=== PATIENT | female | born 1960 | race African-American/Black ===

== ENCOUNTER 2024-01-27 15:15 | Inpatient (IN) | payer MEDICARE, MEDICAID ==
[~2024-01-27] VITALS: Ht 175.3 cm; Wt 83.7 kg
[2024-01-27] MEDS: VANCOMYCIN 1G PREMIX 200 ML IV ONE (15:30)
[2024-01-27] MEDS: DEXTROSE 50% WATER 50ML SYRINGE IV ONE (15:43)
[2024-01-27] MEDS: LEVETIRACETAM 1000MG PREMIX 100 ML IV ONE (15:45)
[2024-01-27] MEDS: PIPERACILLIN/TAZO 3.375G/50ML 50 ML IV ONE (15:46)
[2024-01-27] MEDS: SODIUM CHLORIDE 0.9% 500 ML IV ONE (15:48)
[2024-01-27 16:39] LABS: BASOPHILS % 1.2 % (0.0-2.0); DIFFERENTIAL COMMENT 0; EOSINOPHILS % 0.2 % (0.0-5.0); HEMATOCRIT. 36.9 % (36.0-48.0); HEMOGLOBIN. 11.7 g/dL (12.0-16.0); LYMPHOCYTES % 14.4 % (20.0-50.0); MEAN CORPUSCULAR HEMOGLOBIN 24.3 pg (28.0-32.0); MEAN CORPUSCULAR HGB CONC 31.7 g/dL (31.0-37.0); MEAN CORPUSCULAR VOLUME 76.7 fL (81.0-99.0); MEAN PLATELET VOLUME 8.1 fl (7.4-10.4); MONOCYTES % 8.8 % (2.0-8.0); NEUTROPHILS % 75.4 % (40.0-76.0); PLATELET 248 x1000/uL (130-400); RED BLOOD CELL COUNT 4.81 mill/uL (4.2-5.4); RED CELL DISTRIBUTION WIDTH 17.9 % (11.6-14.6); WHITE BLOOD COUNT 6.5 x1000/uL (4.5-11.0)
[2024-01-27 16:49] LABS: CHLORIDE 105 mEq/L (98-107); POTASSIUM 4.4 mEq/L (3.5-5.1); SODIUM 138 mEq/L (136-145)
[2024-01-27 16:50] LABS: CALCIUM 9.2 mg/dL (8.7-10.4); CARBON DIOXIDE 18 mEq/L (21-32)
[2024-01-27 16:51] LABS: INR 1.2
[2024-01-27 16:55] LABS: CREATININE 1.6 mg/dL (0.6-1.0); GLUCOSE 74 mg/dL (70-105); TROPONIN I HIGH SENSITIVITY 34 ng/L (3.0-34); UREA NITROGEN BLOOD 20 mg/dL (9-23)
[2024-01-27 16:57] LABS: ACETAMINOPHEN < 2 ug/mL (10-30); ALANINE AMINOTRANSFERASE 19 IU/L (10-49); ALBUMIN 3.6 g/dL (3.2-4.8); AMMONIA 51 uMol/L (<32); ASPARTATE AMINOTRANSFERASE 31 IU/L (<34); BILIRUBIN DIRECT 1.6 mg/dL (<=3.0); BILIRUBIN TOTAL 2.7 mg/dL (0.1-1.0); ETHANOL BLOOD < 10 mg/dL (<10); PROTEIN TOTAL 6.8 g/dL (6.0-8.3)
[2024-01-27 16:59] LABS: LACTIC ACID 6.1 mmol/L (0.4-2.0)
[2024-01-27] MEDS ORDERED: LACTULOSE 20G/30ML UDC PO ONE ×2 (17:00)
[2024-01-27] MEDS: LACTULOSE 20G/30ML UDC PO NR (21:00)
[2024-01-27 22:16] VITALS: BP 130/99; PULSE 109; RESP 21; TEMP 37.28076; TEMP 37.3076; O2SAT 97
[2024-01-27] MEDS ORDERED: DEXTROSE 50% WATER 50ML SYRINGE IV PRN (23:45)
[2024-01-28] VITALS: BP 120/85; PULSE 101; RESP 16; TEMP 37.2252; O2SAT 98
[2024-01-28] MEDS ORDERED: FURO40TA5 PO (01:13)
[2024-01-28] MEDS ORDERED: GLIP10TA17 PO (01:13)
[2024-01-28] MEDS ORDERED: CARV3.1242 PO (01:13)
[2024-01-28] MEDS ORDERED: HYDR25TA78 PO (01:13)
[2024-01-28] MEDS ORDERED: METF-416 PO (01:13)
[2024-01-28] MEDS: LORAZEPAM 2MG/ML INJ IV PRN (03:57)
[2024-01-28 04:11] VITALS: BP 131/99; PULSE 113; RESP 22; TEMP 37.05852; O2SAT 98
[2024-01-28 04:33] LABS: CLARITY URINE CLOUDY (CLEAR); COLOR URINE YELLOW (YELLOW); GLUCOSE URINE NEGATIVE (NEGATIVE); KETONES URINE NEGATIVE (NEGATIVE); LEUKOCYTE ESTERASE URINE NEGATIVE (NEGATIVE); NITRITE URINE NEGATIVE (NEGATIVE); OCCULT BLOOD URINE 3+ (NEGATIVE); PH URINE 5.5 (4.5-8.0); PROTEIN URINE 1+ (NEGATIVE); SPECIFIC GRAVITY URINE 1.012 (1.005-1.030)
[2024-01-28 04:45] LABS: *AMPHETAMINES SCREEN URINE NEGATIVE (NEGATIVE); *BARBITURATES SCREEN URINE NEGATIVE (NEGATIVE); *BENZODIAZEPINES SCREEN URINE PRESUMPTIVE POSITIVE (NEGATIVE); *COCAINE SCREEN URINE PRESUMPTIVE POSITIVE (NEGATIVE); CANNABINOID URINE SCREEN PRESUMPTIVE POSITIVE (NEGATIVE); ECSTASY MDMA SCREEN URINE NEGATIVE (NEGATIVE); METHADONE URINE SCREEN NEGATIVE (NEGATIVE); OPIATES URINE SCREEN NEGATIVE (NEGATIVE); PHENCYCLIDINE URINE SCREEN NEGATIVE (NEGATIVE); SQUAMOUS EPITHELIAL CELL URINE FEW /lpf (RARE/1+); WBC URINE 0-2 /hpf (0-2)
[2024-01-28 04:46] LABS: BACTERIA URINE NONE SEEN; RBC URINE 50-100 /hpf (0-2)
[2024-01-28] MEDS: HYDRALAZINE HCL 25MG TABLET PO SCH (06:00)
[2024-01-28] MEDS: BLOOD SUGAR DIAGNOSTIC STRIP TEST SCH (06:12)
[2024-01-28] MEDS: INSULIN LISPRO 100 UNITS/ML SUBCUT SCH (06:14)
[2024-01-28 08:00] VITALS: BP 135/98; PULSE 119; RESP 26; TEMP 36.50292; O2SAT 96
[2024-01-28 08:22] LABS: BASOPHILS % 0.6 % (0.0-2.0); DIFFERENTIAL COMMENT 0; EOSINOPHILS % 0.3 % (0.0-5.0); HEMATOCRIT. 35.1 % (36.0-48.0); HEMOGLOBIN. 11.3 g/dL (12.0-16.0); LYMPHOCYTES % 35.3 % (20.0-50.0); MEAN CORPUSCULAR HEMOGLOBIN 24.5 pg (28.0-32.0); MEAN CORPUSCULAR HGB CONC 32.2 g/dL (31.0-37.0); MEAN CORPUSCULAR VOLUME 76.1 fL (81.0-99.0); MEAN PLATELET VOLUME 7.6 fl (7.4-10.4); NEUTROPHILS % 53.8 % (40.0-76.0); PLATELET 232 x1000/uL (130-400); RED BLOOD CELL COUNT 4.61 mill/uL (4.2-5.4); RED CELL DISTRIBUTION WIDTH 18.2 % (11.6-14.6)
[2024-01-28 08:23] LABS: CREATININE 1.4 mg/dL (0.6-1.0)
[2024-01-28] MEDS ORDERED: LEVETIRACETAM 1,000MG in NACL 100ML PREMIX IV SCH (09:00)
[2024-01-28] MEDS: LACTULOSE 20G/30ML UDC PO SCH (09:00)
[2024-01-28] MEDS ORDERED: CARVEDILOL 3.125 MG TABLET PO SCH (09:00)
[2024-01-28] MEDS ORDERED: ENOXAPARIN 40MG/0.4ML SYR SUBCUT SCH (09:00)
[2024-01-28] MEDS: FUROSEMIDE 40MG TABLET PO SCH (09:00)
[2024-01-28] MEDS: LEVETIRACETAM 1000MG PREMIX 100 ML IV SCH (09:26)
[2024-01-28 10:44] LABS: INR 1.2
[2024-01-28 10:59] LABS: AMMONIA 39 uMol/L (<32)
[2024-01-28 12:00] VITALS: BP 126/101; PULSE 115; RESP 14; TEMP 36.6696; O2SAT 96
[2024-01-28] MEDS: DILTIAZEM HCL 30MG TABLET PO SCH (14:00)
[2024-01-28 16:00] VITALS: BP 154/106; PULSE 115; RESP 21; TEMP 36.3918; O2SAT 99
[2024-01-28] MEDS: HYDRALAZINE 20MG/ML VIAL IV PRN (16:10)
[2024-01-28 19:09] VITALS: BP 142/100; PULSE 119; RESP 19; TEMP 36.83628; O2SAT 98
[2024-01-29] VITALS (8 sets, daily range): BP systolic 134–154; BP diastolic 91–121; PULSE 101–129; RESP 18–36; TEMP 36.61404–36.78072; O2SAT 92–100
[2024-01-29] MEDS: FUROSEMIDE 40MG/4ML VIAL IVP SCH (00:51)
[2024-01-29] MEDS: LABETALOL HCL 200MG TABLET PO SCH (10:00)
[2024-01-29] MEDS: IPRATROPIUM/ALBUTEROL 0.5-3(2.5)MG/3ML NEB HHN SCH (16:35)
[2024-01-29] MEDS: THIAMINE HCL 100MG TABLET PO SCH (17:45)
[2024-01-29] MEDS: FOLIC ACID 1MG TABLET PO SCH (17:45)
[2024-01-29] MEDS: MULTIVITAMINS,THER W-MINERALS TABLET PO SCH (17:45)
[2024-01-29 20:48] LABS: T4 FREE 1.74 ng/dL (0.89-1.76); THYROID STIMULATING HORMONE 1.12 uIU/mL (0.55-4.78)
[2024-01-29 20:49] LABS: VITAMIN B12 SERUM 1701 pg/mL (211-911)
[2024-01-29 20:50] LABS: FOLIC ACID (FOLATE) SERUM 13.43 ng/mL (>5.38)
[2024-01-29] MEDS: ACETAMINOPHEN 325MG TABLET PO PRN (22:26)
[2024-01-30] VITALS (10 sets, daily range): BP systolic 107–138; BP diastolic 78–106; PULSE 90–106; RESP 16–42; TEMP 36.44736–36.83628; O2SAT 96–99
[2024-01-30] MEDS: ONDANSETRON HCL 4MG/2ML INJ IV PRN (23:35)
[2024-01-31] VITALS: BP 128/87; PULSE 103; RESP 16; TEMP 36.3918; O2SAT 98
[2024-01-31 00:40] VITALS: PULSE 104; RESP 20
[2024-01-31 04:03] VITALS: BP 131/97; PULSE 96; RESP 20; TEMP 36.9474; TEMP 36.94740; O2SAT 95
[2024-01-31] MEDS ORDERED: SODIUM BICARBONATE 4% 2.4MEQ/5ML VIAL IV ONE (09:18)
[2024-01-31] MEDS ORDERED: LIDOCAINE HCL 1% 10 MG/ML 10ML VIAL ONE (09:18)
[2024-01-31 13:29] VITALS: PULSE 90; RESP 19; O2SAT 94
[2024-01-31] MEDS: FAMOTIDINE 20MG TABLET PO SCH (16:38)
[2024-01-31] MEDS ORDERED: KEPP500 MT (16:54)
[2024-01-31 17:48] VITALS: BP 116/82; PULSE 90; TEMP 97.8; O2SAT 97
== END 2024-01-31 18:27 | disposition home health service (06) | DRG 91 ==
LOC: ER 15:15 → 3WST 17:30 → EDBEDREQSVC 17:32 → EDBEDREQ 17:32
PROVIDERS: ADMIT Internal Medicine; ATTEND Internal Medicine
PROC: 4A00X4Z Measurement of Central Nervous Electrical Activity, External Approach (ICD-10-PCS; principal; 2024-01-31)
DX: G92.8 Other toxic encephalopathy (principal); J96.00 Acute respiratory failure, unspecified whether with hypoxia or hypercapnia; N17.9 Acute kidney failure, unspecified; E87.20 Acidosis, unspecified; I13.0 Hypertensive heart and chronic kidney disease with heart failure and stage 1 through stage 4 chronic kidney disease, or unspecified chronic kidney disease; R18.8 Other ascites; J68.0 Bronchitis and pneumonitis due to chemicals, gases, fumes and vapors; R56.9 Unspecified convulsions; E11.22 Type 2 diabetes mellitus with diabetic chronic kidney disease; F14.10 Cocaine abuse, uncomplicated; I50.9 Heart failure, unspecified; N18.9 Chronic kidney disease, unspecified; R33.9 Retention of urine, unspecified; Z20.822 Contact with and (suspected) exposure to COVID-19; D64.9 Anemia, unspecified; R16.0 Hepatomegaly, not elsewhere classified; R26.89 Other abnormalities of gait and mobility; F12.10 Cannabis abuse, uncomplicated; K74.60 Unspecified cirrhosis of liver; Y92.89 Other specified places as the place of occurrence of the external cause
CPT/HCPCS: 36415; 70551; 71045; 76705; 80048; 80061; 80076; 80305; 80307; 80320; 80329; 81003; 82140; 82607; 82746; 82962; 83036; 83605; 83880; 84145; 84439; 84443; 84481; 84484; 85025; 87426; 87804; 92523; 92610; 93005; 93306; 94070; 94640; 94664; 97166; 97535; 98960; 99285; J0360; J1815; J1940; J1953; J2060; J2405; J2543; J3370; J3490; J7040; G0480

== ENCOUNTER 2024-02-02 16:01 | Inpatient (IN) | payer MEDICARE, MEDICAID ==
[~2024-02-02] VITALS: Ht 165.1 cm; Wt 68.0 kg
[~2024-02-02 16:01] MED LIST: CARV3.1242 PO; FURO40TA5 PO; GLIP10TA17 PO; HYDR25TA78 PO; KEPP500 MT
[2024-02-02] MEDS ORDERED: DEXT 10% WATER 1,000 ML IV ONE (17:00)
[2024-02-02] MEDS: CALCIUM GLUCONATE 1GM PREMIX 50 ML IV ONE (17:04)
[2024-02-02] MEDS: DEXT 5%/0.9% NACL 500 ML IV ONE (17:04)
[2024-02-02 17:13] LABS: BASOPHILS % 1.2 % (0.0-2.0); DIFFERENTIAL COMMENT 0; EOSINOPHILS % 2.2 % (0.0-5.0); HEMATOCRIT. 36.7 % (36.0-48.0); HEMOGLOBIN. 11.5 g/dL (12.0-16.0); LYMPHOCYTES % 22.1 % (20.0-50.0); MEAN CORPUSCULAR HEMOGLOBIN 24.3 pg (28.0-32.0); MEAN CORPUSCULAR HGB CONC 31.5 g/dL (31.0-37.0); MEAN CORPUSCULAR VOLUME 77.1 fL (81.0-99.0); MEAN PLATELET VOLUME 7.6 fl (7.4-10.4); MONOCYTES % 12.6 % (2.0-8.0); NEUTROPHILS % 61.9 % (40.0-76.0); PLATELET 217 x1000/uL (130-400); RED BLOOD CELL COUNT 4.76 mill/uL (4.2-5.4); RED CELL DISTRIBUTION WIDTH 18.5 % (11.6-14.6); WHITE BLOOD COUNT 5.1 x1000/uL (4.5-11.0)
[2024-02-02 17:18] LABS: CHLORIDE 115 mEq/L (98-107); POTASSIUM 2.9 mEq/L (3.5-5.1); SODIUM 152 mEq/L (136-145)
[2024-02-02 17:19] LABS: CALCIUM 9.3 mg/dL (8.7-10.4); CARBON DIOXIDE 29 mEq/L (21-32)
[2024-02-02 17:20] LABS: INR 1.2; PROTHROMBIN TIME 12.8 sec (9.6-11.0)
[2024-02-02 17:24] LABS: CREATININE 1.2 mg/dL (0.6-1.0); GLUCOSE 59 mg/dL (70-105); UREA NITROGEN BLOOD 15 mg/dL (9-23)
[2024-02-02 17:26] LABS: ALANINE AMINOTRANSFERASE 18 IU/L (10-49); ALBUMIN 3.7 g/dL (3.2-4.8); ASPARTATE AMINOTRANSFERASE 28 IU/L (<34); BILIRUBIN DIRECT 1.2 mg/dL (<=3.0); PROTEIN TOTAL 6.9 g/dL (6.0-8.3)
[2024-02-02 17:33] LABS: ETHANOL BLOOD < 10 mg/dL (<10); TROPONIN I HIGH SENSITIVITY 95 ng/L (3.0-34)
[2024-02-02 22:00] VITALS: BP 118/89; PULSE 113; RESP 18; TEMP 36.50292; O2SAT 98
[2024-02-02] MEDS ORDERED: ONDANSETRON HCL 4MG/2ML INJ IV PRN (23:00)
[2024-02-02] MEDS: ASPIRIN 325MG EC TABLET PO NR (23:13)
[2024-02-02] MEDS: POTASSIUM CHLORIDE 20MEQ/PACKET PO SCH (23:13)
[2024-02-02] MEDS: ASPIRIN 325MG EC TABLET PO SCH (23:16)
[2024-02-02 23:18] VITALS: BP 123/55; PULSE 85; RESP 20; TEMP 36.16956; O2SAT 100
[2024-02-02 23:24] VITALS: BP 123/55; PULSE 85; RESP 20; TEMP 36.1956
[2024-02-02] MEDS ORDERED: POTASSIUM CHLORIDE 20MEQ/PACKET PO NR (23:45)
[2024-02-03] VITALS (8 sets, daily range): BP systolic 100–136; BP diastolic 55–91; PULSE 79–116; RESP 17–20; TEMP 35.94732–36.6696; O2SAT 92–99
[2024-02-03] MEDS: ZOLPIDEM TARTRATE 5MG TABLET PO PRN (01:15)
[2024-02-03] MEDS: POTASSIUM CHLORIDE 20MEQ/PACKET PO SCH (04:48)
[2024-02-03] MEDS ORDERED: DEXTROSE 50% WATER 50ML SYRINGE IV PRN ×2 (05:15)
[2024-02-03] MEDS: BLOOD SUGAR DIAGNOSTIC STRIP TEST SCH (06:40)
[2024-02-03] MEDS: INSULIN LISPRO 100 UNITS/ML SUBCUT SCH (06:41)
[2024-02-03] MEDS ORDERED: BLOOD SUGAR DIAGNOSTIC STRIP TEST SCH (07:10)
[2024-02-03] MEDS: FAMOTIDINE 20MG TABLET PO SCH (08:15)
[2024-02-03] MEDS ORDERED: LOSA25TA26 MT (16:28)
[2024-02-03] MEDS ORDERED: LEVETIRACETAM 500MG TABLET PO SCH (21:00)
== END 2024-02-03 19:50 | disposition home or self-care (01) | DRG 638 ==
LOC: ER 16:01 → 5WST 19:16 → EDBEDREQ 19:29 → EDBEDREQTM 19:29 → 8WST 02-03 02:09
PROVIDERS: ADMIT Internal Medicine; ATTEND Internal Medicine
DX: E11.649 Type 2 diabetes mellitus with hypoglycemia without coma (principal); I50.22 Chronic systolic (congestive) heart failure; F14.90 Cocaine use, unspecified, uncomplicated; F17.210 Nicotine dependence, cigarettes, uncomplicated; I11.0 Hypertensive heart disease with heart failure; J44.89 Other specified chronic obstructive pulmonary disease; Z79.84 Long term (current) use of oral hypoglycemic drugs; Z79.899 Other long term (current) drug therapy
CPT/HCPCS: 36415; 71045; 80048; 80076; 80320; 82962; 83036; 84484; 85025; 93005; 99291; J0610; J1815; G0480

== ENCOUNTER 2024-06-05 18:05 | Inpatient (IN) | payer MEDICARE, MEDICAID ==
[~2024-06-05] VITALS: Ht 167.6 cm; Wt 111.8 kg
[~2024-06-05 18:05] MED LIST changes: -HYDR25TA78 PO; +LOSA25TA26 MT
[2024-06-05 18:15] VITALS: RESP 39
[2024-06-05] MEDS: NITROGLYCERIN 50MG PREMIX 250 ML IV ONE (18:22)
[2024-06-05] MEDS: IPRATROPIUM/ALBUTEROL 0.5-3(2.5)MG/3ML NEB HHN ONE (18:34)
[2024-06-05] MEDS: FUROSEMIDE 40MG/4ML VIAL IV ONE (18:36)
[2024-06-05] MEDS: NITROGLYCERIN OINT 1GM/INCH UDPKT TD ONE (18:36)
[2024-06-05 19:12] LABS: BG BASE EXCESS -6.3 mmol/L (-2.0-3.0); BG CARBOXYHEMOGLOBIN 1.7 % (0.5-1.5); BG DEOXYHEMOGLOBIN 1.8 % (0.0-5.0); BG FRACTION INSPIRED OXYGEN 100; BG HCO3 ACT 20.4 mmol/L (21.0-28.0); BG METHEMOGLOBIN 0.3 % (0.5-1.5); BG OXYGEN SATURATION 98.2 % (94.0-98.0); BG OXYHEMOGLOBIN 96.2 % (94.0-98.0); BG PH 7.274 (7.350-7.450); BG PO2 117.2 mmHg (83.0-108.0); BG SAMPLE SITE RIGHT RADIAL; BG TOTAL HEMOGLOBIN 12.5 g/dL (12.0-16.0); BG TOTAL RESPIRATORY RATE 22 b/min; BG VENT MODE MASK - BIPAP
[2024-06-05 19:41] LABS: CHLORIDE 108 mEq/L (98-107); POTASSIUM 5.7 mEq/L (3.5-5.1); SODIUM 135 mEq/L (136-145)
[2024-06-05 19:42] LABS: CALCIUM 9.1 mg/dL (8.7-10.4); CARBON DIOXIDE 14 mEq/L (21-32)
[2024-06-05 19:46] LABS: TROPONIN I HIGH SENSITIVITY 23 ng/L (3.0-34)
[2024-06-05 19:47] LABS: UREA NITROGEN BLOOD 24 mg/dL (9-23)
[2024-06-05 19:48] LABS: ETHANOL BLOOD < 10 mg/dL (<10)
[2024-06-05 19:58] LABS: CREATININE 1.6 mg/dL (0.6-1.0); GLUCOSE 26 mg/dL (70-105)
[2024-06-05] MEDS: DEXTROSE 50% WATER 50ML SYRINGE IV NR (20:09)
[2024-06-05 20:10] VITALS: RESP 38
[2024-06-05 20:10] LABS: HEMOGLOBIN. 11.1 g/dL (12.0-16.0); MEAN CORPUSCULAR HEMOGLOBIN 23.8 pg (28.0-32.0); MEAN CORPUSCULAR HGB CONC 31.7 g/dL (31.0-37.0); MEAN CORPUSCULAR VOLUME 74.9 fL (81.0-99.0); PLATELET 213 x1000/uL (130-400); RED BLOOD CELL COUNT 4.67 mill/uL (4.2-5.4); RED CELL DISTRIBUTION WIDTH 23.3 % (11.6-14.6)
[2024-06-05 20:11] LABS: DIFFERENTIAL COMMENT 1
[2024-06-05] MEDS: SODIUM ZIRCONIUM CYCLOSILICATE 10GM/PACKET PO NR (20:11)
[2024-06-05] MEDS ORDERED: DOXYCYCLINE HYCLATE 100 MG/VIAL IV ONE (20:15)
[2024-06-05] MEDS: MORPHINE SULFATE 4 MG/ML INJ (FOR IV/IM USE) IV NR (20:15)
[2024-06-05] MEDS: CEFTRIAXONE 1GM/50ML 50 ML IV NR (20:20)
[2024-06-05 20:23] LABS: INR 1.3; PARTIAL THROMBOPLASTIN TIME 28.2 sec (23.4-31.0)
[2024-06-05 20:30] LABS: TROPONIN I HIGH SENSITIVITY 22 ng/L (3.0-34)
[2024-06-05 20:36] LABS: ANISOCYTOSIS 2+; HYPOCHROMASIA 1+; MICROCYTOSIS 2+; NUCLEATED RED BLOOD CELLS 3 /100 WBC; PLATELET ESTIMATE NORMAL
[2024-06-05 21:06] LABS: LACTIC ACID 2.9 mmol/L (0.4-2.0)
[2024-06-05] MEDS: DOXYCYCLINE 100MG/100ML 100 ML IV NR (21:15)
[2024-06-05 21:22] LABS: INFLUENZA TYPE A Presumptive Negative (Pres. Neg.)
[2024-06-05 21:23] LABS: INFLUENZA TYPE B Presumptive Negative (Pres. Neg.)
[2024-06-05] MEDS: METOPROLOL TARTRATE 5MG/5ML VIAL IV ONE (21:40)
[2024-06-05] MEDS: ASPIRIN 325MG EC TABLET PO NR (21:49)
[2024-06-05] MEDS: ENOXAPARIN 80MG/0.8ML SYR SUBCUT SCH (21:50)
[2024-06-05 22:16] LABS: ALANINE AMINOTRANSFERASE 20 IU/L (10-49); ALBUMIN 2.9 g/dL (3.2-4.8); ASPARTATE AMINOTRANSFERASE 37 IU/L (<34); BILIRUBIN DIRECT 2.4 mg/dL (<=3.0); BILIRUBIN TOTAL 3.8 mg/dL (0.1-1.0)
[2024-06-05 22:42] VITALS: RESP 25
[2024-06-05] MEDS ORDERED: ALBU2.5V13 (23:42)
[2024-06-05] MEDS ORDERED: FAMO20TA8 PO (23:42)
[2024-06-05] MEDS ORDERED: NAPR-681 PO (23:42)
[2024-06-05] MEDS ORDERED: ALBU18HF2 (23:42)
[2024-06-05] MEDS ORDERED: SITA25TA3 PO (23:42)
[2024-06-06] VITALS (18 sets, daily range): BP systolic 88–119; BP diastolic 67–97; PULSE 97–109; RESP 10–24; TEMP 36.1–36.8; O2SAT 95–100
[2024-06-06] MEDS ORDERED: BUDESONIDE 0.5MG/2ML NEB HHN SCH (00:45)
[2024-06-06] MEDS ORDERED: IPRATROPIUM/ALBUTEROL 0.5-3(2.5)MG/3ML NEB HHN SCH (00:45)
[2024-06-06] MEDS ORDERED: IPRATROPIUM/ALBUTEROL 0.5-3(2.5)MG/3ML NEB HHN PRN (00:45)
[2024-06-06] MEDS ORDERED: DEXT 10% WATER 1,000 ML IV SCH (01:00)
[2024-06-06] MEDS: BLOOD SUGAR DIAGNOSTIC STRIP TEST SCH ×3 (01:00→12:30)
[2024-06-06] MEDS: FUROSEMIDE 40MG/4ML VIAL IVP NR (01:44)
[2024-06-06] MEDS: METHYLPREDNISOLONE SOD SUCC 125MG/2ML (ACT-O-VIAL) IV NR (01:44)
[2024-06-06] MEDS: DEXTROSE 50% WATER 50ML SYRINGE IV PRN (02:12)
[2024-06-06] MEDS: DEXTROSE 10% WATER 1,000 ML IV SCH (02:35)
[2024-06-06] MEDS: AZITHROMYCIN 500MG/250ML 250 ML IV SCH (05:30)
[2024-06-06 06:46] LABS: BASOPHILS % 0.3 % (0.0-2.0); HEMATOCRIT. 35.2 % (36.0-48.0); HEMOGLOBIN. 11.1 g/dL (12.0-16.0); LYMPHOCYTES % 7.6 % (20.0-50.0); MEAN CORPUSCULAR HEMOGLOBIN 23.7 pg (28.0-32.0); MEAN CORPUSCULAR HGB CONC 31.6 g/dL (31.0-37.0); MEAN PLATELET VOLUME 7.5 fl (7.4-10.4); MONOCYTES % 5.5 % (2.0-8.0); NEUTROPHILS % 86.6 % (40.0-76.0); PLATELET 180 x1000/uL (130-400); RED CELL DISTRIBUTION WIDTH 22.5 % (11.6-14.6); WHITE BLOOD COUNT 9.1 x1000/uL (4.5-11.0)
[2024-06-06 06:48] LABS: CARBON DIOXIDE 26 mEq/L (21-32); CHLORIDE 102 mEq/L (98-107); POTASSIUM 4.3 mEq/L (3.5-5.1); SODIUM 136 mEq/L (136-145)
[2024-06-06 06:49] LABS: CALCIUM 8.4 mg/dL (8.7-10.4); INR 1.3; PARTIAL THROMBOPLASTIN TIME 35.2 sec (23.4-31.0); PROTHROMBIN TIME 13.9 sec (9.6-11.0)
[2024-06-06 06:51] LABS: CREATINE KINASE MB FRACTION 0.9 ng/mL (0.5-3.6); TROPONIN I HIGH SENSITIVITY 25 ng/L (3.0-34)
[2024-06-06 06:53] LABS: CREATININE 1.8 mg/dL (0.6-1.0); GLUCOSE 62 mg/dL (70-105)
[2024-06-06 06:54] LABS: CREATINE KINASE 53 IU/L (34-145); UREA NITROGEN BLOOD 25 mg/dL (9-23)
[2024-06-06 06:56] LABS: PHOSPHORUS 3.3 mg/dL (2.5-4.9)
[2024-06-06 07:08] LABS: DIFFERENTIAL COMMENT 1
[2024-06-06 08:12] LABS: CLARITY URINE CLEAR (CLEAR); COLOR URINE DARK YELLOW (YELLOW); GLUCOSE URINE NEGATIVE (NEGATIVE); KETONES URINE NEGATIVE (NEGATIVE); LEUKOCYTE ESTERASE URINE TRACE (NEGATIVE); NITRITE URINE NEGATIVE (NEGATIVE); OCCULT BLOOD URINE TRACE (NEGATIVE); PH URINE 6.5 (4.5-8.0); PROTEIN URINE TRACE (NEGATIVE); SPECIFIC GRAVITY URINE 1.009 (1.005-1.030)
[2024-06-06 08:30] LABS: SQUAMOUS EPITHELIAL CELL URINE FEW /lpf (RARE/1+)
[2024-06-06 08:31] LABS: HYALINE CASTS URINE 0-5 /lpf
[2024-06-06 08:32] LABS: BACTERIA URINE NONE SEEN; WBC URINE 0-2 /hpf (0-2)
[2024-06-06 08:36] LABS: *AMPHETAMINES SCREEN URINE NEGATIVE (NEGATIVE); *BARBITURATES SCREEN URINE NEGATIVE (NEGATIVE); *BENZODIAZEPINES SCREEN URINE PRESUMPTIVE POSITIVE (NEGATIVE); *COCAINE SCREEN URINE PRESUMPTIVE POSITIVE (NEGATIVE)
[2024-06-06 08:37] LABS: CANNABINOID URINE SCREEN NEGATIVE (NEGATIVE); ECSTASY MDMA SCREEN URINE NEGATIVE (NEGATIVE); METHADONE URINE SCREEN NEGATIVE (NEGATIVE); OPIATES URINE SCREEN PRESUMPTIVE POSITIVE (NEGATIVE); PHENCYCLIDINE URINE SCREEN NEGATIVE (NEGATIVE)
[2024-06-06] MEDS ORDERED: LOSARTAN 25 MG TABLET PO SCH (09:00)
[2024-06-06] MEDS: IPRATROPIUM/ALBUTEROL 0.5-3(2.5)MG/3ML NEB HHN SCH (09:39)
[2024-06-06] MEDS: LEVETIRACETAM 500MG TABLET PO SCH (09:48)
[2024-06-06] MEDS: METHYLPREDNISOLONE SOD SUCC 40MG/ML (ACT-O-VIAL) IV SCH (09:48)
[2024-06-06] MEDS: FUROSEMIDE 40MG/4ML VIAL IVP SCH (11:30)
[2024-06-06] MEDS ORDERED: DEXTROSE 50% WATER 50ML SYRINGE IV PRN (12:30)
[2024-06-06 15:39] LABS: CREATINE KINASE MB FRACTION 1.3 ng/mL (0.5-3.6)
[2024-06-06] MEDS: CEFTRIAXONE 1GM/50ML 50 ML IV SCH (22:13)
[2024-06-06] MEDS ORDERED: IOHEXOL-350 100 ML BOTTLE ONE (23:08)
[2024-06-07] VITALS (16 sets, daily range): BP systolic 90–139; BP diastolic 69–105; PULSE 106–121; RESP 0–25; TEMP 35.9–36.4; O2SAT 96–100
[2024-06-07 00:13] LABS: IRON 12 ug/dL (50-170)
[2024-06-07 00:15] LABS: CREATINE KINASE MB FRACTION 1.2 ng/mL (0.5-3.6); TROPONIN I HIGH SENSITIVITY 18 ng/L (3.0-34)
[2024-06-07 00:16] LABS: CREATINE KINASE 36 IU/L (34-145); TOTAL IRON BINDING CAPACITY 253 ug/dl (250-425)
[2024-06-07 00:18] LABS: LACTIC ACID 2.3 mmol/L (0.4-2.0)
[2024-06-07 00:31] LABS: INFLUENZA TYPE A Presumptive Negative (Pres. Neg.)
[2024-06-07 00:32] LABS: INFLUENZA TYPE B Presumptive Negative (Pres. Neg.)
[2024-06-07] MEDS: AZITHROMYCIN 500MG/250ML 250 ML IV SCH (02:24)
[2024-06-07 07:34] LABS: CHLORIDE 103 mEq/L (98-107); POTASSIUM 5.1 mEq/L (3.5-5.1); SODIUM 135 mEq/L (136-145)
[2024-06-07 07:35] LABS: CALCIUM 8.2 mg/dL (8.7-10.4); CARBON DIOXIDE 19 mEq/L (21-32)
[2024-06-07 07:40] LABS: CREATININE 1.8 mg/dL (0.6-1.0); GLUCOSE 243 mg/dL (70-105); UREA NITROGEN BLOOD 25 mg/dL (9-23)
[2024-06-07 07:42] LABS: ALANINE AMINOTRANSFERASE 15 IU/L (10-49); ALBUMIN 2.6 g/dL (3.2-4.8); ASPARTATE AMINOTRANSFERASE 24 IU/L (<34)
[2024-06-07 07:43] LABS: BILIRUBIN TOTAL 3.3 mg/dL (0.1-1.0); PROTEIN TOTAL 6.7 g/dL (6.0-8.3)
[2024-06-07] MEDS ORDERED: INSULIN LISPRO 100 UNITS/ML SUBCUT SCH (08:45)
[2024-06-07] MEDS ORDERED: DEXT 10% WATER 1,000 ML IV SCH (09:00)
[2024-06-07] MEDS ORDERED: DEXTROSE 50% WATER 50ML SYRINGE IV PRN (09:00)
[2024-06-07 09:05] LABS: HEMATOCRIT. 33.6 % (36.0-48.0); HEMOGLOBIN. 10.3 g/dL (12.0-16.0); MEAN CORPUSCULAR HGB CONC 30.6 g/dL (31.0-37.0); MEAN CORPUSCULAR VOLUME 75.1 fL (81.0-99.0); MEAN PLATELET VOLUME 7.6 fl (7.4-10.4); PLATELET 191 x1000/uL (130-400); RED BLOOD CELL COUNT 4.47 mill/uL (4.2-5.4); RED CELL DISTRIBUTION WIDTH 22.9 % (11.6-14.6); WHITE BLOOD COUNT 15.4 x1000/uL (4.5-11.0)
[2024-06-07 09:11] LABS: DIFFERENTIAL COMMENT 1
[2024-06-07] MEDS: SODIUM POLYSTYRENE SULFONATE 15 G/60 ML BOT PO NR (09:12)
[2024-06-07 10:05] LABS: BG BASE EXCESS -4.9 mmol/L (-2.0-3.0); BG CARBOXYHEMOGLOBIN 0.7 % (0.5-1.5); BG DEOXYHEMOGLOBIN 10.9 % (0.0-5.0); BG FRACTION INSPIRED OXYGEN 21; BG HCO3 ACT 19.5 mmol/L (21.0-28.0); BG METHEMOGLOBIN 0.3 % (0.5-1.5); BG OXYHEMOGLOBIN 88.1 % (94.0-98.0); BG PCO2 33.6 mmHg (32.0-45.0); BG PH 7.381 (7.350-7.450); BG PO2 58.8 mmHg (83.0-108.0); BG SAMPLE SITE RIGHT RADIAL; BG TOTAL HEMOGLOBIN 11.4 g/dL (12.0-16.0); BG VENT MODE ROOM AIR
[2024-06-07] MEDS: BLOOD SUGAR DIAGNOSTIC STRIP TEST SCH (11:46)
[2024-06-07] MEDS: INSULIN LISPRO (LOW DOSE) 100 UNITS/ML SUBCUT SCH (12:22)
[2024-06-07 12:23] LABS: NUCLEATED RED BLOOD CELLS 3 /100 WBC; PLATELET ESTIMATE NORMAL
[2024-06-07 12:24] LABS: ANISOCYTOSIS 2+; HYPOCHROMASIA 1+; MICROCYTOSIS 1+
[2024-06-07] MEDS: METHYLPREDNISOLONE SOD SUCC 125MG/2ML (ACT-O-VIAL) IV SCH (21:31)
[2024-06-08] VITALS (16 sets, daily range): BP systolic 99–127; BP diastolic 74–99; PULSE 108–119; RESP 16–23; TEMP 36.3–37.1; O2SAT 92–100
[2024-06-08 07:03] LABS: CHLORIDE 101 mEq/L (98-107); POTASSIUM 3.9 mEq/L (3.5-5.1); SODIUM 135 mEq/L (136-145)
[2024-06-08 07:04] LABS: CALCIUM 8.8 mg/dL (8.7-10.4); CARBON DIOXIDE 25 mEq/L (21-32)
[2024-06-08 07:07] LABS: HEMATOCRIT. 33.1 % (36.0-48.0); HEMOGLOBIN. 10.3 g/dL (12.0-16.0); MEAN CORPUSCULAR VOLUME 74.1 fL (81.0-99.0); MEAN PLATELET VOLUME 7.3 fl (7.4-10.4); PLATELET 202 x1000/uL (130-400); RED BLOOD CELL COUNT 4.46 mill/uL (4.2-5.4); RED CELL DISTRIBUTION WIDTH 22.8 % (11.6-14.6); WHITE BLOOD COUNT 11.3 x1000/uL (4.5-11.0)
[2024-06-08 07:09] LABS: CREATININE 1.8 mg/dL (0.6-1.0); GLUCOSE 277 mg/dL (70-105)
[2024-06-08 07:10] LABS: UREA NITROGEN BLOOD 28 mg/dL (9-23)
[2024-06-08 07:11] LABS: DIFFERENTIAL COMMENT 1
[2024-06-08 07:12] LABS: PHOSPHORUS 2.5 mg/dL (2.5-4.9)
[2024-06-08] MEDS ORDERED: FUROSEMIDE 40MG/4ML VIAL IVP SCH (17:15)
[2024-06-08 17:33] LABS: NUCLEATED RED BLOOD CELLS 3 /100 WBC
[2024-06-08 17:34] LABS: PLATELET ESTIMATE NORMAL
[2024-06-08] MEDS: FUROSEMIDE 100MG/10ML VIAL IVP SCH (18:19)
[2024-06-08] MEDS: GUAIFENESIN 600MG ER TABLET PO SCH (20:57)
[2024-06-08] MEDS: INSULIN LISPRO 100 UNITS/ML SUBCUT NR (22:29)
[2024-06-09] VITALS (11 sets, daily range): BP systolic 108–132; BP diastolic 86–106; PULSE 111–125; RESP 10–37; TEMP 35.6–36.6; O2SAT 92–100
[2024-06-09] MEDS: ONDANSETRON HCL 4MG/2ML INJ IV PRN (02:26)
[2024-06-09] MEDS: BLOOD SUGAR DIAGNOSTIC STRIP TEST SCH (08:21)
[2024-06-09] MEDS: INSULIN LISPRO 100 UNITS/ML SUBCUT SCH (09:50)
== END 2024-06-09 14:57 | disposition left against medical advice (07) | DRG 917 ==
LOC: ER 18:05 → 5EST 20:49 → EDBEDREQ 20:52
PROVIDERS: ADMIT Family Medicine Adult Medicine; ATTEND Family Medicine Adult Medicine
PROC: 5A09357 Assistance with Respiratory Ventilation, Less than 24 Consecutive Hours, Continuous Positive Airway Pressure (ICD-10-PCS; principal; 2024-06-05)
DX: T40.5X1A Poisoning by cocaine, accidental (unintentional), initial encounter (principal); A41.9 Sepsis, unspecified organism; I50.43 Acute on chronic combined systolic (congestive) and diastolic (congestive) heart failure; J96.01 Acute respiratory failure with hypoxia; E87.20 Acidosis, unspecified; N17.9 Acute kidney failure, unspecified; R18.8 Other ascites; I42.0 Dilated cardiomyopathy; I13.0 Hypertensive heart and chronic kidney disease with heart failure and stage 1 through stage 4 chronic kidney disease, or unspecified chronic kidney disease; J68.0 Bronchitis and pneumonitis due to chemicals, gases, fumes and vapors; Z20.822 Contact with and (suspected) exposure to COVID-19; Z53.29 Procedure and treatment not carried out because of patient's decision for other reasons; E80.6 Other disorders of bilirubin metabolism; E11.22 Type 2 diabetes mellitus with diabetic chronic kidney disease; N18.9 Chronic kidney disease, unspecified; E87.5 Hyperkalemia; K74.60 Unspecified cirrhosis of liver; D50.9 Iron deficiency anemia, unspecified; E11.649 Type 2 diabetes mellitus with hypoglycemia without coma; G40.909 Epilepsy, unspecified, not intractable, without status epilepticus; F14.10 Cocaine abuse, uncomplicated; F12.10 Cannabis abuse, uncomplicated; F17.200 Nicotine dependence, unspecified, uncomplicated; Z88.6 Allergy status to analgesic agent; Y92.89 Other specified places as the place of occurrence of the external cause
CPT/HCPCS: 36415; 36600; 71045; 71275; 74177; 80048; 80053; 80076; 80305; 80320; 81003; 82375; 82550; 82553; 82728; 82805; 82962; 83036; 83540; 83550; 83605; 83735; 83880; 84100; 84145; 84484; 85025; 87426; 87804; 93005; 93306; 93970; 94070; 94640; 94660; 94664; 94760; 97162; 99291; A4606; J0456; J0696; J1650; J1815; J1940; J2270; J2405; J2919; J3490; Q9967; G0480